=== PATIENT | male | born 1940 | race Caucasian/White ===

== ENCOUNTER 2024-12-27 10:15 | Outpatient (CLI) | payer MEDICARE | END 2024-12-27 10:16 | disposition home or self-care (01) | LOC: PET 10:15 | PROVIDERS: ATTEND Otolaryngology | DX: C02.9 Malignant neoplasm of tongue, unspecified (principal); R59.0 Localized enlarged lymph nodes; R91.1 Solitary pulmonary nodule | CPT/HCPCS: 78815; A9552 ==